=== PATIENT | male | born 1950 | race Caucasian/White ===

== ENCOUNTER 2017-05-20 11:13 | Emergency (ER) | payer MEDICARE ==
[2017-05-20 11:49] LABS: BASOPHIL 0.2 % (0-2); EOSINOPHIL 1.7 % (0-7); HGB 14.7 g/dl (13.2-18.0); MCH 29.1 pg (25.0-31.0); MCHC 34.2 g/dL (32.0-36.0); MPV 10.8 fL (6.0-9.5); NEUTROPHIL 73.1 % (41-80); PLT 171 K/uL (150-400); RBC 5.06 M/uL (4.70-6.00); RDW 13.9 % (11.5-14.0); WBC 8.2 K/uL (4.0-10.5)
[2017-05-20 12:02] LABS: BILIRUBIN - TOTAL 0.7 mg/dL (0.1-1.0); CREATININE 0.7 mg/dL (0.7-1.2); GLOBULIN (CALCULATION) 2.9 g/dL (2.2-4.2); POTASSIUM 4.4 mmol/L (3.5-5.1); TOTAL PROTEIN 6.9 g/dL (6.4-8.3)
[2017-05-20 12:12] LABS: INR 2.21 (0.9-1.2); PROTHROMBIN TIME 23.9 SECONDS (11.7-14.0)
== END 2017-05-20 13:38 | disposition home or self-care (01) ==
LOC: FER 11:13
PROVIDERS: Emergency Medicine
DX: R42 Dizziness and giddiness (principal); I38 Endocarditis, valve unspecified; Z79.01 Long term (current) use of anticoagulants; Z79.899 Other long term (current) drug therapy
CPT/HCPCS: 36415; 70450; 71010; 80053; 85025; 85610; 93005